=== PATIENT | male | born 1970 | race Caucasian/White ===

== ENCOUNTER 2022-06-03 19:19 | Emergency (ER) | payer OTHER ==
[~2022-06-03 19:19] MED LIST: Iopamidol-370 76% 500 ML 1 ML ONE
[2022-06-03] MEDS ORDERED: FENTANYL 50 MCG/ML 1 ML VIAL ONE (20:33)
[2022-06-03 20:57] LABS: Bacteria/HPF None Seen HPF (None Seen); Bilirubin Negative (Negative); Blood, Urine 2+ (Negative); Calcium Oxalate Crystals 3+ HPF (None Seen); Clarity Clear (Clear); Glucose, Urine (Dipstick) Normal (Negative); Ketone, Urine Negative (Negative); Leukocyte Negative Leu/uL (Negative); Mucous/LPF 1+ LPF (<2+); Nitrite Negative (Negative); Protein, Urine (Dipstick) 50 mg/dL (Neg-Trace); RBC/HPF 21-50 HPF (0-3); Specific Gravity, Urine 1.023 (1.002-1.036); Squamous Epithelial None Seen HPF (0-3); Urobilinogen Normal mg/dL (Less than 2); WBC/HPF 0-3 HPF (0-3)
[2022-06-03 21:38] LABS: Albumin 4.4 g/dL (3.5-5.0)
[2022-06-03 21:40] LABS: Calcium 9.4 mg/dL (7.8-10.44); Chloride 105 mmol/L (98-107); Potassium 3.7 mmol/L (3.5-5.1); Sodium 138 mmol/L (136-145)
[2022-06-03 21:41] LABS: Globulin 2.9 g/dL (2.4-3.5); Glucose 107 mg/dL (70-105); Protein, Total 7.3 g/dL (6.0-8.3)
[2022-06-03 21:42] LABS: Anion Gap 12 mmol/L (10-20); Carbon Dioxide 25 mmol/L (22-29)
[2022-06-03 21:43] LABS: Bilirubin, Total 0.6 mg/dL (0.2-1.2)
[2022-06-03 21:44] LABS: Alkaline Phosphatase 81 U/L (40-110); Calc. Creatinine Clearance 0 mL/min (70-130); Estimated GFR 77
[2022-06-03 21:45] LABS: BUN (Urea Nitrogen) 19 mg/dL (8.9-20.6)
[2022-06-03 21:46] LABS: AST (SGOT) 26 U/L (5-34)
[2022-06-03 21:47] LABS: ALT (SGPT) 44 U/L (8-55); Lipase 37 U/L (8-78)
[2022-06-03] MEDS ORDERED: Orphenadrine Citrate 60 MG/2 ML VIAL ONE (21:47)
[2022-06-03] MEDS ORDERED: traMADol HCl 50 MG TAB ONE (23:04)
== END 2022-06-03 23:13 | disposition home or self-care (01) ==
LOC: ERS 19:19
DX: M54.6 Pain in thoracic spine (principal); I10 Essential (primary) hypertension
CPT/HCPCS: 70450; 71260; 72125; 74177; 80053; 81003; 81015; 83690; 84484; 93005; 96372; J2360; J3010; Q9967